=== PATIENT | female | born 1955 | race Caucasian/White ===

== ENCOUNTER 2023-09-16 11:54 | Emergency (ER) | payer MEDICARE, OTHER, SELFPAY ==
[2023-09-16 11:58] VITALS: BP 127/83
[2023-09-16 12:22] LABS: % Basophils 0.8 % (0-2); % Eosinophils 1.5 % (0-6); % Immature Granulocytes 0.3 % (0-0.5); % Lymphocytes 18.6 % (20.5-51.1); % Monocytes 5.9 % (1.7-9.3); % Neutrophils 72.9 % (42.2-75.2); Absolute Basophils 0.1 10^3/uL (0-0.2); Absolute Eosinophils 0.2 10^3/uL (0-0.7); Absolute Lymphocytes 1.9 10^3/uL (1.2-3.4); Absolute Monocytes 0.6 10^3/uL (0.1-0.6); Absolute Neutrophils 7.4 10^3/uL (1.4-6.5); Hematocrit 43.3 % (37.0-47.0); Hemoglobin 14.6 g/dL (12.0-16.0); Mean Corp Hgb Conc. 33.7 g/dL (33.0-37.0); Mean Corpuscular Hgb 29.6 pg (27.0-31.0); Mean Corpuscular Volume 87.7 fL (81.0-99.0); Mean Platelet Volume 10.4 fL (7.4-10.4); Nucleated Red Blood Cells % 0 %; Platelet Count 283 10^3/uL (130-400); Red Blood Cell Count 4.94 10^6/uL (4.20-5.40); Red Cell Dist. Width 12.5 % (11.5-14.5); White Blood Cell Count 10.1 10^3/uL (4.8-10.8)
[2023-09-16 12:37] LABS: ALT (SGPT) 21 U/L (0-35); AST (SGOT) 23 U/L (14-36); Albumin 4.8 g/dl (3.5-5.0); Alkaline Phosphatase 107 U/L (38-126); Blood Urea Nitrogen 11 mg/dl (7-17); Carbon Dioxide 30 mmol/L (22-30); Chloride 101 mmol/L (98-107); Glucose 215 mg/dl (70-99); Lipase 157 U/L (23-300); Potassium 4.3 mmol/L (3.5-5.1); Sodium 137 mmol/L (135-145); Total Bilirubin 0.6 mg/dl (0.2-1.3); Total Protein 6.9 g/dl (6.3-8.2); eGFR > 60.00
--- NOTE | 2023-09-16 13:05 | ED.GENMED ---
History of Present Illness
General
Chief Complaint: Abdominal Pain
Source: patient
Time Seen by Provider: 09/16/23 12:53
History of Present Illness
History of Present Illness:
68-year-old female
Phy Exam
Physical Exam
Physical Exam:
General: Awake, Alert, Oriented X3. No acute distress.
Vitals: unremarkable
Head: Atraumatic
Eyes: Pupils equal, EOMI
Throat: Airway intact, no exudates
Neck: Trachea midline
Lungs: Clear and equal b/l
Heart: Regular rate, no murmurs
Abd: Soft, minimal right lower abdominal tenderness, No pulsatile mass
Neuro: Nonfocal
Skin: Warm, dry, no rash
Extremities: pulses equal b/l, no edema
Course
Orders/Labs/Results
Orders:
Orders
09/16/23 12:04
IV Insert/Care/Rem.- Treatment PRN
09/16/23 12:14
Complete Blood Count/With Diff Urgent
Comprehensive Metabolic Panel Urgent
Lipase Urgent
09/16/23 13:04
CT Abd/pel W Iv And Oral Contr Urgent
Comment:
Reason For Exam: lower abd pain
09/16/23 13:05
Urinalysis Reflex To Culture Urgent
Date Specimen was Collected: 09/16/23
Time Specimen was Collected: 12:04
Urine Microscopic Reflex Cult Urgent
Urine Culture Urgent
SHELL Source: U
Specimen Description:
Obtained by: Random
Date Specimen was Collected: 09/16/23
Time Specimen was Collected: 12:04
09/16/23 13:11
Iohexol [Omnipaque] See Protocol PO NOW STA
Abnormal Lab Results
09/16/23 09/16/23
12:14 13:05
Absolute Neuts (auto) 7.4 H 10^3/uL
(1.4-6.5)
Lymphocytes % 18.6 L %
(20.5-51.1)
Glucose 215 H mg/dl
(70-99)
Urine Nitrite (Reflex) Positive A
(Negative)
Leukocyte Esterase Rfl Trace A
(Negative)
Urine Bacteria (Reflex) Moderate A
(Negative)
09/16/23 12:14
09/16/23 12:14
Vital Signs
Initial and Last Documented VS:
Initial Vital Signs
Temp Pulse Resp BP Pulse Ox
98.1 F 96 18 127/83 98
09/16/23 11:58 09/16/23 11:58 09/16/23 11:58 09/16/23 11:58 09/16/23 11:58
Last Documented Vital Signs
Temp Pulse Resp BP Pulse Ox
98.1 F 89 20 137/81 96
09/16/23 11:58 09/16/23 15:46 09/16/23 15:46 09/16/23 15:46 09/16/23 15:46
MDM/Problems Addressed
Differential Diagnosis Includes:
hernia, diverticulitis, uti, kidney stpne
MDM/Problems Addressed:
Patient presents with nominal pain. She had an episode of pain yesterday with persistent mild pain since then. Also some urinary frequency. Labs show a normal white blood cell count. Normal chemistries. Her urine is positive for nitrates and
leukocyte esterase. Microscopic evaluation reveals 6-10 WBCs with 3-5 squames and moderate bacteria. Though there are some squamous epithelial cells I feel like they are few in number and this is likely reflective of a acute urinary tract
infection. CT does not show any acute abnormalities. Will cover with Keflex pending culture.
*Critical Care Note
Total Time (30-74mins, 75-104mins- exclusive of procedures): Not Applicable
ED Attending Note
-
Portions of this chart may have been created with voice recognition software.� Occasional wrong word or��sound alike� substitutions may have occurred due to the inherent limitations of voice recognition software.
Discharge Plan
Departure
Patient Disposition: Home (Routine Discharge)
Date of Disposition: 09/16/23
Time of Disposition: 16:50
Patient with high blood pressure during this ER visit?: No
Condition: Good
Discharge Problem:
Abdominal pain, Acute UTI
Instructions: Urinary Tract Infection, Adult ED, Abdominal Pain
Prescriptions:
New
cephalexin 500 mg capsule
500 mg PO BID 7 Days Qty: 14 0RF
Referrals:
Heidi Rivera DO [Family Provider] -
Interventions
Interventions:
*Risk Screen - Suicide Last Done: 09/16/23 11:58
*General Assessment Last Done: 09/16/23 11:58
*Neglect/Abuse Screening Last Done: 09/16/23 11:58
[facility] Assessment Last Done: 09/16/23 13:29
Discharge Date and Time
Print Language: INDONESIAN
[2023-09-16 13:14] LABS: Urine Albumin Negative (Neg - Trace); Urine Bilirubin Negative (Negative); Urine Character Clear (Clear); Urine Color Yellow; Urine Glucose Negative (Negative); Urine Ketone Negative (Negative); Urine Leukocyte Trace (Negative); Urine Nitrite Positive (Negative); Urine Occult Blood Negative (Negative); Urine Urobilinogen Negative (Neg - 1+)
[2023-09-16] MEDS: OMNIPAQUE 50 ML PO (13:24)
[2023-09-16 13:25] LABS: Urine Red Blood Cell 0-2 /HPF (0-2)
[2023-09-16 13:26] LABS: Urine Bacteria Moderate (Negative)
[2023-09-16 15:46] VITALS: BP 137/81
== END 2023-09-16 17:30 | disposition home or self-care (01) ==
LOC: EMR 11:54
PROVIDERS: Emergency Medicine; EMERGENCY PHYSICIAN Emergency Medicine; FAMILY PHYSICIAN Family Medicine
DX: R10.9 Unspecified abdominal pain (principal); N39.0 Urinary tract infection, site not specified; Z90.710 Acquired absence of both cervix and uterus
CPT/HCPCS: 99284; 74177; 80053; 81003; 81015; 83690; 85025; 87077; 87086; 87186; Q9967